=== PATIENT | male | born 1980 | race Caucasian/White ===

== ENCOUNTER 2017-02-10 20:30 | Emergency (ER) | payer OTHER ==
[~2017-02-10] VITALS: Ht 185.4 cm; Wt 81.7 kg
[~2017-02-10 20:30] MED LIST: AMBIEN 5 MG TABL5 M1 PO; CLONAZEPAM 0.50.5 M1 PO; FLONASE 0.05%50 MCG NASAL; NORCO 5-325 TA1 EACH PO; ZYRTEC10 MG PO
[2017-02-10 20:34] VITALS: BP 138/94
[2017-02-10] MEDS ORDERED: MEDROLDOSEPACK PO (21:01)
[2017-02-10] MEDS ORDERED: ADDERALL 30 MG30 MG PO (21:25)
== END 2017-02-10 21:43 | disposition home or self-care (01) ==
LOC: ER 20:30
DX: M54.5 Low back pain (principal); F31.9 Bipolar disorder, unspecified

== ENCOUNTER 2017-05-18 05:02 | Emergency (ER) | payer OTHER ==
[~2017-05-18] VITALS: Ht 188 cm; Wt 81.7 kg
[~2017-05-18 05:02] MED LIST changes: +ADDERALL 30 MG30 MG PO; +MEDROLDOSEPACK PO
[2017-05-18] MEDS ORDERED: FLONASE 0.05%50 MCG NASAL (05:15)
[2017-05-18] MEDS ORDERED: ZYRTEC10 M5 PO (05:16)
[2017-05-18] MEDS ORDERED: IBUPROFEN 200200 M1 PO (05:16)
[2017-05-18] MEDS ORDERED: MOBIC15 MG PO (06:11)
[2017-05-18] MEDS ORDERED: VALIUM5 MG PO (06:11)
[2017-05-18 06:31] VITALS: BP 120/69
== END 2017-05-18 06:32 | disposition home or self-care (01) ==
LOC: ER 05:02
DX: M54.5 Low back pain (principal); F31.9 Bipolar disorder, unspecified; F17.210 Nicotine dependence, cigarettes, uncomplicated; F10.99 Alcohol use, unspecified with unspecified alcohol-induced disorder; F12.10 Cannabis abuse, uncomplicated; Z88.8 Allergy status to other drugs, medicaments and biological substances

== ENCOUNTER 2017-05-20 17:00 | Emergency (ER) | payer OTHER ==
[~2017-05-20] VITALS: Ht 188 cm; Wt 81.7 kg
[~2017-05-20 17:00] MED LIST changes: +IBUPROFEN 200200 M1 PO; +MOBIC15 MG PO; +VALIUM5 MG PO; +ZYRTEC10 M5 PO
[2017-05-20 19:34] VITALS: BP 128/76
[2017-05-21] MEDS ORDERED: TRAMADOL 50 MG50 MG PO (02:37)
== END 2017-05-20 19:40 | disposition home or self-care (01) ==
LOC: ER 17:00
DX: M54.42 Lumbago with sciatica, left side (principal); F31.9 Bipolar disorder, unspecified; F17.210 Nicotine dependence, cigarettes, uncomplicated; F10.99 Alcohol use, unspecified with unspecified alcohol-induced disorder

== ENCOUNTER 2017-05-21 01:44 | Emergency (ER) | payer OTHER ==
[~2017-05-21] VITALS: Ht 188 cm; Wt 81.7 kg
[2017-05-21] MEDS ORDERED: TRAMADOL 50 MG50 MG PO (02:37)
[2017-05-21 02:56] VITALS: BP 146/96
== END 2017-05-21 03:07 | disposition home or self-care (01) ==
LOC: ER 01:44
DX: M54.42 Lumbago with sciatica, left side (principal); F31.9 Bipolar disorder, unspecified; F17.210 Nicotine dependence, cigarettes, uncomplicated; F10.99 Alcohol use, unspecified with unspecified alcohol-induced disorder